=== PATIENT | female | born 1995 | race Two or more races ===

== ENCOUNTER 2024-02-24 20:17 | Emergency (ER) | payer OTHER ==
[~2024-02-24] VITALS: Ht 154.9 cm; Wt 70.3 kg
[2024-02-24] MEDS ORDERED: LEXAPRO5 MG PO (20:50)
[2024-02-24] MEDS ORDERED: ATIVAN0.5 M1 PO (20:50)
[2024-02-24] MEDS ORDERED: MEPERIDINE HCL/PF 25 MG/ML VIAL IM ONE (21:15)
[2024-02-24 21:38] LABS: HEMATOCRIT 37.3 % (36.0-45.00); HEMOGLOBIN 12.8 g/dL (12.0-15.00); MEAN CORPUSCULAR HEMOGLOBIN 29.2 pg (27.00-32.0); MEAN CORPUSCULAR HGB CONC 34.4 g/dl (32.0-36.0); PLATELET COUNT 330 K/uL (150-450); RED BLOOD COUNT 4.39 M/uL (4.00-6.00); RED CELL DISTRIBUTION WIDTH 13.8 % (11.5-14.5)
[2024-02-24 22:09] LABS: URINE APPEARANCE Cloudy; URINE BILIRRUBIN Negative (NEGATIVE); URINE BLOOD Trace; URINE COLOR Yellow; URINE GLUCOSE Negative (NEGATIVE); URINE KETONE Negative (NEGATIVE); URINE LEUKOCYTE Negative; URINE NITRATE Negative; URINE PROTEIN Negative (NEGATIVE)
[2024-02-24 22:11] LABS: URINE EPITHELIAL CELLS 9.5 uL (0.0-38.8); URINE RBC 16.9 uL (0.0-20.8)
== END 2024-02-24 23:16 | disposition home or self-care (01) ==
LOC: ER 20:19
PROVIDERS: General Practice
DX: O20.8 Other hemorrhage in early pregnancy (principal); Z3A.01 Less than 8 weeks gestation of pregnancy; F41.8 Other specified anxiety disorders